=== PATIENT | female | born 1995 | race Caucasian/White ===

== ENCOUNTER 2021-09-03 18:16 | Inpatient (IN) ==
[2021-09-03 17:50] LABS: Basophils % 0.3 %; Eosinophils % 0.4 %; Hematocrit 33.7 % (35.3-44.9); Hemoglobin 11.7 g/dL (11.5-15.4); Immature Granulocytes % 0.7 % (0-4); Lymphocytes # 1.8 K/mcL (0.6-4.6); Lymphocytes % 18.1 %; Mean Corpuscular HGB Conc 34.7 g/dL (31.6-35.5); Mean Corpuscular Hemoglobin 29.5 pg (28.0-33.3); Mean Corpuscular Volume 85.1 fL (83.0-100.0); Mean Platelet Volume 12.2 fL (9.4-12.4); Monocytes # 0.5 K/mcL (0.0-1.3); Monocytes % 4.6 %; Neutrophils # 7.5 K/mcL (1.6-8.9); Platelet Count 242 K/mcL (140-400); Red Blood Count 3.96 M/mcL (3.82-4.97); Red Cell Distribution Width 13.2 % (11.5-14.5); Segmented Neutrophils % 75.9 %; White Blood Count 9.9 K/mcL (4.3-11.1)
[2021-09-03 18:01] LABS: Protein/Creatinine Ratio,Urine 0.63 mg/mg (0.00-0.20)
[2021-09-03 18:06] LABS: Alanine Aminotransferase 16 Units/L (7-52); Aspartate Amino Transferase 23 Units/L (13-39); BUN/Creatinine Ratio 6 (6-26); Blood Urea Nitrogen 3 mg/dL (6-20); Lactate Dehydrogenase 136 Units/L (140-271); Uric Acid 4.7 mg/dL (2.3-7.6); eGFR For African Americans > 60 (> 60); eGFR For Non-African Americans > 60 (> 60)
[~2021-09-03 18:16] MED LIST: *HR* Labetalol 20 MG/4 ML SYRINGE IVP ONE; *HR* Labetalol 20 MG/4 ML SYRINGE IVP PRN; miSOPROStoL 25 MCG TABLET PO PRN
[2021-09-03] MEDS ORDERED: Ringers Solution, Lactated 1,000 ML ONE (18:23)
[2021-09-03] MEDS ORDERED: Penicillin G Potassium 5,000,000 UNIT in 0.9 % Sodium Chloride Mini Bag 100 ML IVPB ONE (18:35)
[2021-09-03] MEDS ORDERED: *HR* Labetalol 20 MG/4 ML SYRINGE IVP PRN (19:02)
[2021-09-03] MEDS ORDERED: NIFEdipine Immed Rel 10 MG CAPSULE PO ONE (19:02)
[2021-09-03] MEDS: Magnesium Sulf 20 gm/SW 500mL 20 GM/500 ML IV.SOLN IVC SCH (19:15)
[2021-09-03 20:14] LABS: Influenza A PCR Negative (Negative); Influenza B PCR Negative (Negative); Resp. Syncytial Virus PCR Negative (Negative)
[2021-09-03 20:15] LABS: SARS-CoV-2 by PCR (In House) Negative (Negative)
[2021-09-03] MEDS ORDERED: Calcium Gluconate 1,000 MG/10 ML VIAL ONE (21:03)
[2021-09-03] MEDS ORDERED: EPHEDrine 50 MG/ML VIAL IVP PRN (21:43)
[2021-09-03] MEDS ORDERED: Ropivacaine/PF 0.2% 20 ML VIAL ONE (22:18)
[2021-09-03] MEDS ORDERED: *HR* FentaNYL (PF) 100 MCG/2 ML VIAL ONE (22:18)
[2021-09-03] MEDS: Epidural Premix (fent/bupiv) 110 ML EP SCH (22:39)
[2021-09-03] MEDS ORDERED: Oxytocin 20 units/ LR 1000 mL 20 UNIT/1,000 ML BAG IVC SCH (23:30)
[2021-09-03] MEDS: Penicillin G Potassium 2,500,000 UNIT/105 ML MLS IVPB SCH (23:45)
[2021-09-04] MEDS: Penicillin G Potassium 2,500,000 UNIT/105 ML MLS IVPB SCH ×2 (04:39→08:32)
[2021-09-04] MEDS: Magnesium Sulf 20 gm/SW 500mL 20 GM/500 ML IV.SOLN IVC SCH ×3 (04:42→23:44)
[2021-09-04] MEDS ORDERED: NIFEdipine Immed Rel 10 MG CAPSULE PO ONE (04:57)
[2021-09-04] MEDS: Epidural Premix (fent/bupiv) 110 ML EP SCH (06:15)
[2021-09-04] MEDS ORDERED: Acetaminophen 325 MG TABLET PO PRN (07:30)
[2021-09-04] MEDS ORDERED: NIFEdipine Immed Rel 10 MG CAPSULE PO PRN (07:32)
[2021-09-04] MEDS ORDERED: NIFEdipine XL (24 HR) 30 MG TAB.ER.24 PO SCH (12:30)
[2021-09-04] MEDS ORDERED: Ondansetron ODT 4 MG TAB.RAPDIS SL PRN (12:31)
[2021-09-04] MEDS ORDERED: Rho Immune Globulin 1,500 UNIT SYRINGE IM PRN (12:31)
[2021-09-04] MEDS ORDERED: Benzocaine/Menthol 56 GM AEROSOL SPRAY TP PRN (12:31)
[2021-09-04] MEDS ORDERED: Oxytocin 20 units/ LR 1000 mL 20 UNIT/1,000 ML BAG IVC SCH (12:31)
[2021-09-04] MEDS ORDERED: Lanolin 7 G OINT...G. TP PRN (12:31)
[2021-09-04] MEDS ORDERED: Oxytocin 20 units/ LR 1000 mL 20 UNIT/1,000 ML BAG IVC ONE (12:31)
[2021-09-04] MEDS ORDERED: NIFEdipine XL (24 HR) 30 MG TAB.ER.24 PO ONE (13:00)
[2021-09-04] MEDS: Ibuprofen 600 MG TABLET PO SCH ×2 (15:45→22:19)
[2021-09-04] MEDS: Acetaminophen 325 MG TABLET PO SCH ×2 (15:45→22:18)
[2021-09-04] MEDS ORDERED: Tetracaine/Benzocaine/Butamben 1 SPRAY AEROSOL MM PRN (16:42)
[2021-09-04] MEDS ORDERED: *HR* Labetalol 20 MG/4 ML SYRINGE IVP ONE (19:39)
[2021-09-05] MEDS ORDERED: Ringers Solution, Lactated 1,000 ML ONE (02:43)
[2021-09-05] MEDS: Ibuprofen 600 MG TABLET PO SCH ×3 (03:44→17:16)
[2021-09-05] MEDS: Acetaminophen 325 MG TABLET PO SCH ×3 (03:45→17:17)
[2021-09-05] MEDS: NIFEdipine XL (24 HR) 30 MG TAB.ER.24 PO SCH (08:49)
[2021-09-05] MEDS: Prenatal Vit/FA 1 EACH TABLET PO SCH (08:50)
[2021-09-05] MEDS: Magnesium Sulf 20 gm/SW 500mL 20 GM/500 ML IV.SOLN IVC SCH (09:50)
[2021-09-06] MEDS: Ibuprofen 600 MG TABLET PO SCH ×2 (01:25→08:17)
[2021-09-06] MEDS: Acetaminophen 325 MG TABLET PO SCH ×2 (01:26→08:17)
[2021-09-06 07:28] VITALS: O2SAT 98
[2021-09-06] MEDS: Prenatal Vit/FA 1 EACH TABLET PO SCH (08:16)
[2021-09-06] MEDS: NIFEdipine XL (24 HR) 30 MG TAB.ER.24 PO SCH (08:17)
[2021-09-06 12:51] VITALS: BP 142/85; PULSE 78; TEMP 97.8
== END 2021-09-06 16:30 | disposition home or self-care (01) | DRG 805 ==
LOC: 1NENULAB → 1NENUOBS 09-04 14:30
PROVIDERS: ADMIT Student in an Organized Health Care Education/Training Program; ATTEND Student in an Organized Health Care Education/Training Program